=== PATIENT | female | born 1940 | race Caucasian/White ===

== ENCOUNTER 2020-01-30 06:39 | Inpatient (IN) | payer OTHER, MEDICAID ==
[~2020-01-30] VITALS: Ht 160 cm; Wt 55.8 kg
[2020-01-30 06:46] VITALS: Ht 160 cm; Wt 55.8 kg
[2020-01-30 07:32] LABS: BASOPHIL % 0.5 % (0-2); PLATELET COUNT 304 x10^3mcL (130-400); RED CELL DISTRIBUTION WIDTH 14.1 % (11.5-14.5)
[2020-01-30 07:52] LABS: CALCIUM 8.7 mg/dL (8.5-10.1); CARBON DIOXIDE 27.1 mmol/L (21-32); CHLORIDE SERUM 95 mmol/L (98-107); CREATININE SERUM 0.8 mg/dL (0.6-1.0); GLUCOSE SERUM 97 mg/dL (74-106); POTASSIUM SERUM 3.7 mmol/L (3.5-5.1); SODIUM SERUM 129 mmol/L (136-145)
[2020-01-30 07:57] LABS: ALKALINE PHOSPHATASE 52 U/L (46-116); ALT/SGPT 16 U/L (14-59); AST/SGOT 19 U/L (15-37); BILIRUBIN TOTAL 0.5 mg/dL (0.20-1.00); TOTAL PROTEIN, SERUM 6.3 g/dL (6.4-8.2)
[2020-01-30 07:59] LABS: ALBUMIN 3.1 g/dL (3.4-5.0)
[2020-01-30] MEDS ORDERED: ZESTRIL5 MG PO (08:34)
[2020-01-30] MEDS ORDERED: CARVEDILOL ER10 MG PO (09:12)
[2020-01-30] MEDS ORDERED: COZAAR25 M1 PO (09:15)
[2020-01-30] MEDS ORDERED: DILTIAZEM CD180 MG PO (09:15)
[2020-01-30] MEDS ORDERED: ACID REDUCER20 MG PO (09:17)
[2020-01-30] MEDS ORDERED: ATORVASTATIN CA10 M1 PO (09:17)
[2020-01-30] MEDS ORDERED: TRAZODONE100 MG PO (09:32)
[2020-01-30] MEDS ORDERED: ZOLOFT25 MG PO (09:32)
[2020-01-30] MEDS ORDERED: COLACE100 MG PO (09:33)
[2020-01-30] MEDS ORDERED: ARICEPT5 MG PO (09:33)
[2020-01-30] MEDS ORDERED: ZOL50 PO (09:33)
[2020-01-30] MEDS ORDERED: ATIVAN0.5 M1 PO (09:34)
[2020-01-30] MEDS ORDERED: NITROGLYCERIN0.4 MG SL (09:34)
[2020-01-30 10:52] VITALS: BP 153/70
[2020-01-30 15:40] LABS: microscopic required? NO; urine erythrocyte NEGATIVE (NEGATIVE)
[2020-01-30 16:16] VITALS: BP 136/63
[2020-01-30 20:42] VITALS: BP 134/76
[2020-01-31 05:50] VITALS: BP 130/70
[2020-01-31 06:39] LABS: BASOPHIL % 0.6 % (0-2); PLATELET COUNT 257 x10^3mcL (130-400)
[2020-01-31 06:52] LABS: RED CELL DISTRIBUTION WIDTH 14.6 % (11.5-14.5)
[2020-01-31 07:06] LABS: CALCIUM 8.9 mg/dL (8.5-10.1); CARBON DIOXIDE 29.4 mmol/L (21-32); CHLORIDE SERUM 99 mmol/L (98-107); CREATININE SERUM 0.7 mg/dL (0.6-1.0); GLUCOSE SERUM 86 mg/dL (74-106); POTASSIUM SERUM 3.5 mmol/L (3.5-5.1); SODIUM SERUM 136 mmol/L (136-145)
[2020-01-31 07:45] VITALS: BP 119/67
[2020-01-31 09:43] VITALS: BP 119/67
[2020-01-31 15:56] VITALS: BP 125/64
== END 2020-01-31 20:06 | DRG 313 ==
LOC: ED 06:39 → MU 09:12 → DU 09:12 → MU 16:33
PROVIDERS: Emergency Medicine; ADMIT Family Medicine
DX: R07.89 Other chest pain (principal); E44.0 Moderate protein-calorie malnutrition; I10 Essential (primary) hypertension; F29 Unspecified psychosis not due to a substance or known physiological condition; F03.90 Unspecified dementia, unspecified severity, without behavioral disturbance, psychotic disturbance, mood disturbance, and anxiety; F32.9 Major depressive disorder, single episode, unspecified; Z88.2 Allergy status to sulfonamides; Z88.1 Allergy status to other antibiotic agents; Z88.8 Allergy status to other drugs, medicaments and biological substances; Z88.0 Allergy status to penicillin; Z90.49 Acquired absence of other specified parts of digestive tract; Z68.22 Body mass index [BMI] 22.0-22.9, adult
CPT/HCPCS: G0378; J2270; J2405; Q0092